=== PATIENT | female | born 1985 | race African-American/Black ===

== ENCOUNTER 2016-10-12 11:47 | Observation (INO) | payer BC ==
[~2016-10-12] VITALS: Ht 175.3 cm; Wt 78.0 kg
[2016-10-12] VITALS (16 sets, daily range): BP systolic 68–107; BP diastolic 34–80
--- NOTE | 2016-10-12 12:07 | PHYS DOC ---
Past Medical History Past Medical History: No Pertinent History Past Surgical History: No Surgical History Alcohol Use: Occasionally Drug Use: None Adult General Chief Complaint Chief Complaint: VAGINAL BLEEDING HPI HPI Patient is a 31 year old Bangladeshi Bangladeshi female who presents with. 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 She denies any recent intercourse or penetration. She states she was checked recently for sexually transmitted infections and is negative. She denies any past surgical history. She had to call 911 and 911 reported she had a syncopal episode with them for about 1 minute. She is currently alert and oriented 4, mildly diaphoretic but denying any pain. Review of Systems Review of Systems Constitutional: Denies fever or chills [] Eyes: Denies change in visual acuity, redness, or eye pain [] HENT: Denies nasal congestion or sore throat [] Respiratory: Denies cough or shortness of breath [] Cardiovascular: No additional information not addressed in HPI [] GI: Denies abdominal pain, nausea, vomiting, bloody stools or diarrhea [] : Denies dysuria or hematuria [] Musculoskeletal: Denies back pain or joint pain [] Integument: Denies rash or skin lesions [] Neurologic: Denies headache, focal weakness or sensory changes [] Endocrine: Denies polyuria or polydipsia [] Current Medications Current Medications Current Medications Medications (Trade) Dose Ordered Sig/Coty Start Time Stop Time Status Last Admin Dose Admin Sodium Chloride 1,000 ml @ 1,000 mls/hr 1X ONCE 10/12/16 12:45 10/12/16 13:44 DC 10/12/16 12:54 1,000 MLS/HR Allergies Allergies Allergies Coded Allergies Type Severity Reaction Last Updated Verified No Known Drug Allergies 10/12/16 No Physical Exam Physical Exam Constitutional: Well developed, well nourished, no acute distress, non-toxic appearance. [] HENT: Normocephalic, atraumatic, bilateral external ears normal, oropharynx moist, no oral exudates, nose normal. [] Eyes: PERRLA, EOMI, conjunctiva normal, no discharge. [] Neck: Normal range of motion, no tenderness, supple, no stridor. [] Cardiovascular:Heart rate regular rhythm, no murmur [] Lungs & Thorax: Bilateral breath sounds clear to auscultation [] Abdomen/pelvic exam: Bowel sounds normal, soft, no tenderness, no masses, no pulsatile masses. Pelvic exam shows blood with large clots in the vault, cannot appreciate the os secondary to blood. Skin: Warm, dry, no erythema, no rash. [] Back: No tenderness, no CVA tenderness. [] Extremities: No tenderness, no cyanosis, no clubbing, ROM intact, no edema. [] Neurologic: Alert and oriented X 3, normal motor function, normal sensory function, no focal deficits noted. [] Psychologic: Affect normal, judgement normal, mood normal. [] Current Patient Data Vital Signs Vital Signs Date Time Temp Pulse Resp B/P (MAP) Pulse Ox O2 Delivery O2 Flow Rate FiO2 10/12/16 13:41 98.0 92 20 73/50 98.0 10/12/16 12:43 100 Room Air Lab Values Laboratory Tests Test 10/12/16 04:20 10/12/16 12:20 Maternal Serum HCG Beta Subunit 762 mIU/mL (0-5) H White Blood Count 5.6 x10^3/uL (4.0-11.0) Red Blood Count 3.65 x10^6/uL (3.50-5.40) Hemoglobin 10.2 g/dL (12.0-15.5) L Hematocrit 31.7 % (36.0-47.0) L Mean Corpuscular Volume 87 fL (79-100) Mean Corpuscular Hemoglobin 28 pg (25-35) Mean Corpuscular Hemoglobin Concent 32 g/dL (31-37) Red Cell Distribution Width 14.5 % (11.5-14.5) Platelet Count 192 x10^3/uL (140-400) Neutrophils (%) (Auto) 63 % (31-73) Lymphocytes (%) (Auto) 29 % (24-48) Monocytes (%) (Auto) 7 % (0-9) Eosinophils (%) (Auto) 1 % (0-3) Basophils (%) (Auto) 1 % (0-3) Neutrophils # (Auto) 3.5 x10^3uL (1.8-7.7) Lymphocytes # (Auto) 1.6 x10^3/uL (1.0-4.8) Monocytes # (Auto) 0.4 x10^3/uL (0.0-1.1) Eosinophils # (Auto) 0.0 x10^3/uL (0.0-0.7) Basophils # (Auto) 0.0 x10^3/uL (0.0-0.2) Prothrombin Time 14.9 SEC (11.7-14.0) H Prothrombin Time INR 1.2 (0.8-1.1) H PTT 26 SEC (24-38) Sodium Level 143 mmol/L (136-145) Potassium Level 3.4 mmol/L (3.5-5.1) L Chloride Level 108 mmol/L (98-107) H Carbon Dioxide Level 24 mmol/L (21-32) Anion Gap 11 (6-14) Blood Urea Nitrogen 10 mg/dL (7-20) Creatinine 1.1 mg/dL (0.6-1.0) H Estimated GFR (Cockcroft-Gault) 58.3 BUN/Creatinine Ratio 9 (6-20) Glucose Level 141 mg/dL (70-99) H Calcium Level 7.9 mg/dL (8.5-10.1) L Total Bilirubin 0.2 mg/dL (0.2-1.0) Aspartate Amino Transferase (AST) 15 U/L (15-37) Alanine Aminotransferase (ALT) 8 U/L (14-59) L Alkaline Phosphatase 65 U/L (46-116) Total Protein 6.3 g/dL (6.4-8.2) L Albumin 3.1 g/dL (3.4-5.0) L Albumin/Globulin Ratio 1.0 (1.0-1.7) Laboratory Tests 10/12/16 12:20 Laboratory Tests 10/12/16 12:20 Microbiology 10/12/16 Wet Prep - Final, Complete Microbiology 10/12/16 Wet Prep - Final, Complete EKG EKG [] Radiology/Procedures Radiology/Procedures [] Impressions: Vaginal bleeding Course & Med Decision Making Course & Med Decision Making Pertinent Labs and Imaging studies reviewed. (See chart for details) 1245: I spoke with Dr. Vega who wants patient admitted to his service. He was updated him on the beta-hCG and ultrasound pending. 1345: Spoke with Dr. Vega informed him of the beta Quant and her blood pressure systolic in the 60s. Patient's getting another 2 units of blood on the rapid infuser and additional fluids. At this point it seems she was and likely miscarried and has retained products and that's why she's bleeding. Patient is being admitted to Dr. Vega. Dr. Burr at bedside 1400. She will be going to the OR. Critical care time: 55 minutes critical care time was used on this patient excluding procedures. Dragon Disclaimer Dragon Disclaimer This electronic medical record was generated, in whole or in part, using a voice recognition dictation system. Departure Departure Impression: Primary Impression: Vaginal bleeding Disposition: ADMITTED INPATIENT Admitting Physician: Other Condition: GUARDED JACIEL LOCKWOOD MD Oct 12, 2016 12:07
[2016-10-12] MEDS ORDERED: IV NORMAL SALINE 500ML BAG 500 ML IV ONE (12:20)
[2016-10-12 12:32] LABS: BASO % 1 % (0-3); EOS % 1 % (0-3); HEMATOCRIT 31.7 % (36.0-47.0); HEMOGLOBIN 10.2 g/dL (12.0-15.5); LYMPH # 1.6 x10^3/uL (1.0-4.8); LYMPH % 29 % (24-48); MEAN CORPUSCULAR HEMOGLOBIN 28 pg (25-35); MEAN CORPUSCULAR HGB CONC 32 g/dL (31-37); MEAN CORPUSCULAR VOLUME 87 fL (79-100); MONO % 7 % (0-9); NEUT % 63 % (31-73); PLATELET COUNT 192 x10^3/uL (140-400); RED BLOOD COUNT 3.65 x10^6/uL (3.50-5.40); RED CELL DISTRIBUTION WIDTH 14.5 % (11.5-14.5); WHITE BLOOD COUNT 5.6 x10^3/uL (4.0-11.0)
[2016-10-12 12:42] LABS: INR 1.2 (0.8-1.1); PROTHROMBIN TIME PATIENT 14.9 SEC (11.7-14.0)
[2016-10-12 12:44] LABS: CALCIUM 7.9 mg/dL (8.5-10.1); CREATININE 1.1 mg/dL (0.6-1.0); GFR 58.3; POTASSIUM 3.4 mmol/L (3.5-5.1)
[2016-10-12] MEDS ORDERED: IV NORMAL SALINE 1000ML BAG 1,000 ML IV ONE (12:45)
[2016-10-12 12:50] LABS: ALBUMIN 3.1 g/dL (3.4-5.0); TOTAL BILIRUBIN 0.2 mg/dL (0.2-1.0); TOTAL PROTEIN 6.3 g/dL (6.4-8.2)
--- NOTE | 2016-10-12 13:54 | RAD ---
INDICATION: Vaginal bleeding COMPARISON: None. TECHNIQUE: Grayscale and color ultrasound images uterus and adnexa. Transabdominal and transvaginal images obtained. FINDINGS: Uterus: 11.1 x 6.5 x 5.7 cm. Endometrial Stripe: 5 mm. Focal thickening near the cervix measuring up to approximately 14 mm. Right Ovary: 2.4 x 3.1 x 1.9 cm. Flow Identified. Left Ovary: Obscured by bowel gas. IMPRESSION: 1. There is some debris or focal endometrial thickening near the cervical region with the endometrial stripe smaller in thickness more superiorly. Could be secondary to some blood/debris within or focal thickening. Follow-up examination could be obtained to ensure that there is appropriate thinning of this portion of the endometrium. 2. Nonvisualization of the left ovary with vascular flow seen to the right ovary.
[2016-10-12] MEDS ORDERED: LIDOCAINE 2% PF Vial for OR 5 ML VIAL. ONE ×2 (14:08→14:09)
[2016-10-12] MEDS ORDERED: fentaNYL PF VIAL 100 MCG/2 ML VIAL ONE (14:08)
[2016-10-12] MEDS ORDERED: MIDAZOLAM HCL/PF 2 MG/2 ML VIAL. ONE (14:08)
[2016-10-12] MEDS ORDERED: SUCCINYLCHOLINE 200 MG/10 ML VIAL. ONE (14:08)
[2016-10-12] MEDS ORDERED: PROPOFOL 20 ML IV ONE (14:08)
[2016-10-12] MEDS ORDERED: METOCLOPRAMIDE HCL 10 MG/2 ML VIAL. ONE (14:09)
[2016-10-12] MEDS ORDERED: FAMOTIDINE 20 MG/2 ML VIAL ONE (14:09)
[2016-10-12] MEDS ORDERED: oxyCODONE/APAP 5/325 1 TAB TABLET PO PRN ×2 (14:30)
[2016-10-12] MEDS ORDERED: DEXTROSE 50% 25 GM / 50ML DISP.SYRIN. IV PRN (14:30)
[2016-10-12] MEDS ORDERED: ONDANSETRON PF 4 MG/2 ML VIAL. IV PRN (14:30)
[2016-10-12] MEDS ORDERED: MAG HYDROX/ALUMINUM HYD/SIMETH 30 ML ORAL.SUSP PO PRN (14:30)
[2016-10-12] MEDS ORDERED: oxyCODONE IR 5 MG TABLET PO PRN (14:30)
[2016-10-12] MEDS ORDERED: diphenhydrAMINE HCL 25 MG CAPSULE PO PRN (14:30)
[2016-10-12] MEDS ORDERED: KETOROLAC TROMETHAMINE 30 MG/ML INJ. IV PRN (14:30)
[2016-10-12] MEDS ORDERED: 0.9 % SODIUM CHLORIDE 10 ML DISP.SYRIN. IV PRN (14:30)
[2016-10-12] MEDS ORDERED: IV RINGERS,LACTATED 1000ML 1,000 ML IV ONE (14:30)
[2016-10-12] MEDS ORDERED: METOCLOPRAMIDE HCL 10 MG/2 ML VIAL. IV PRN (14:30)
[2016-10-12] MEDS ORDERED: MORPHINE SULFATE 2 MG/ML DISP.SYRIN. IV PRN (14:30)
--- NOTE | 2016-10-12 14:50 | PDOC ---
BRIEF OPERATIVE NOTE Date: Oct 12, 2016 Pre-Op Diagnosis Incomplete AB Post-Op Diagnosis Same Procedure Performed Suction D and C Surgeon Joe Extraction Operator None Anesthesia Type: General Blood Loss 50cc Specimens Obtained POC Complications None DONELL JIMENEZ MD Oct 12, 2016 14:50
[2016-10-12] MEDS ORDERED: SEVOFLURANE 16 TO 30 MINUTES. IH ONE (14:56)
[2016-10-12] MEDS ORDERED: OXYTOCIN 10 UNIT/ML VIAL. ONE (14:56)
[2016-10-12] MEDS ORDERED: PHENYLEPHRINE in 0.9% NACL PF 1 MG/10 ML DISP.SYRIN. IV ONE (14:56)
[2016-10-12 18:13] LABS: HEMATOCRIT 28.1 % (36.0-47.0); HEMOGLOBIN 9.3 g/dL (12.0-15.5)
--- NOTE | 2016-10-12 20:46 | OP ---
DATE OF SURGERY: 10/12/2016 PREOPERATIVE DIAGNOSIS: Incomplete , anemia, syncopal episode. POSTOPERATIVE DIAGNOSIS: Incomplete , anemia, syncopal episode. PROCEDURE: Suction dilatation and curretage. SURGEON: Chance Diaz M.D. GROUNDHAND: None. ANESTHESIA: General. ESTIMATED BLOOD LOSS: Less than 100 mL. FLUIDS: Crystalloid. SPECIMENS: Products of conception. COMPLICATIONS: None. CONDITION: Stable. DESCRIPTION OF PROCEDURE: After risks, benefits, indications, alternatives discussed in detail with the patient and the patient's family, the patient brought to the OR theater, placed in dorsal lithotomy position in Gonzalez stirrups. After adequate general anesthesia, the patient prepped and draped in usual sterile manner. Posterior weighted speculum was placed in the vaginal vault. Cervix was grasped with single tooth tenaculum. Cervical os is already dilated up using ring forceps. Ring forceps was used to explore the uterine cavity. Products of conception was removed from the uterine cavity and handed off the operative field. A number 10 curved suction cannula was placed through the uterine cavity. Minimum products of conception were seen going through clear tubing. Sharp curettage was then performed in all quadrants until uterine cry was heard. Suction cannula was once again passed, no further products of conception were seen and tubing was cleared with normal saline. Vaginal vault was wiped free of any tissue, membranes or blood. Single tooth tenaculum was removed. Puncture sites were hemostatic, procedure was terminated. Pitocin was given postoperatively. Sponge, needle and instrument counts were correct x 2 per nursing staff. The patient tolerated the procedure well with postop anesthesia recovery in stable condition. CHANCE DIAZ MD DR: FANNY/shanda JOB#: [id number] / [id number]
[2016-10-12] MEDS: DOXYCYCLINE HYCLATE 100 MG TABLET PO SCH (21:08)
[2016-10-12] MEDS: METHYLERGONOVINE MALEATE 0.2 MG TABLET PO SCH (21:08)
[2016-10-12] MEDS ORDERED: ZOLPIDEM 5 MG TABLET. PO PRN (23:00)
[2016-10-13 02:55] VITALS: BP 113/72
[2016-10-13] MEDS: DOXYCYCLINE HYCLATE 100 MG TABLET PO SCH ×2 (07:57→14:03)
[2016-10-13] MEDS: METHYLERGONOVINE MALEATE 0.2 MG TABLET PO SCH (07:57)
[2016-10-13 10:35] VITALS: BP 100/59
--- NOTE | 2016-10-13 14:56 | PDOC3 ---
OB DISCHARGE SUMMARY DATE OF ADMISSION: 10/12/16 DATE OF DISCHARGE: 10/13/16 REASON FOR ADMISSION: Vaginal bleeding, Spontaneous aboration PROCEDURES: Ultrasound INTRAPARTUM PROCEDURES: Curettage OPERATIONS: Hemorrhage DISCHARGE DIAGNOSIS: Others DISCHARGE INFORMATION: Activity, Diet HOSPITAL COURSE Unremarkable CONDITION AT DISCHARGE Stable DONELL JIMENEZ MD Oct 13, 2016 14:56
--- NOTE | 2016-10-13 14:59 | PDOC1 ---
OB - History Hx of Present Care: None Ultrasounds: Abnormal US findings (No IUP pos hcg 300=) Obstetrical Complications: Other (SAB) Medical Complications: None Past Family/Social History * Past Medical, Surgical, Family and Obstetric Histories reviewed from chart. Blood Type: O+ Rubella: Unknown RPR/VDRL: Unknown GBS Status: Unknown HBsAG: Unknown OB - Chief Complaint & HPI Date of Admission: Date of Admission: Oct 12, 2016 at 13:30 Chief Complaint/History : 3 Para: 3 EGA: Unknown Reason for admission: observation, vaginal bleeding Admission Nurse Assessment Rev: Yes Problems: OB - Admission Exam Physical Exam Vitals: VS - Last 72 Hours, by Label Date Time Temp Pulse Resp B/P (MAP) Pulse Ox O2 Delivery O2 Flow Rate FiO2 10/13/16 10:35 98.0 98 18 100/59 (73) 98.0 10/13/16 02:55 98.7 111 16 113/72 (86) 98.7 10/12/16 22:25 98.1 99 18 102/58 (73) 98.1 10/12/16 19:00 98.0 106 18 90/57 (68) 99 Room Air 98.0 10/12/16 18:00 116 87/62 (70) 10/12/16 17:30 98.0 111 18 93/64 (74) 100 Room Air 98.0 10/12/16 17:00 16 16 107/59 (75) 100 Room Air 10/12/16 16:45 97.4 92 16 106/64 (78) 99 Room Air 97.4 10/12/16 16:30 99 16 103/80 (88) 100 Room Air 10/12/16 16:15 97.6 97 14 98/56 (70) 97 Room Air 97.6 10/12/16 15:45 78 20 91/49 78 Room Air 10/12/16 15:27 78 20 92/47 100 Room Air 10/12/16 15:12 78 20 100/49 100 Room Air 10/12/16 14:57 74 20 106/53 74 Simple Mask 10 10/12/16 14:22 97.4 74 12 80/46 97.4 10/12/16 14:22 97.4 74 12 80/46 100 2.0 97.4 10/12/16 13:51 81 81/50 7/21/17 13:51 81 81/50 (60) 100 Nasal Cannula 2.0 10/12/16 13:49 80 78/49 10/12/16 13:49 80 78/49 (59) 100 Nasal Cannula 2.0 10/12/16 13:46 86 71/41 (51) 100 Nasal Cannula 2.0 10/12/16 13:46 86 71/41 10/12/16 13:44 83 68/34 (45) 100 Nasal Cannula 2.0 10/12/16 13:44 83 68/34 10/12/16 13:41 85 73/50 (58) 100 Nasal Cannula 2.0 10/12/16 13:41 98.0 92 20 73/50 98.0 10/12/16 13:39 92 20 74/44 10/12/16 13:39 87 74/44 (54) 100 Nasal Cannula 2.0 10/12/16 13:38 94 74/43 (53) 100 Nasal Cannula 2.0 10/12/16 13:36 93 74/46 (55) 100 Nasal Cannula 2.0 10/12/16 13:33 97.8 94 20 90/51 97.8 10/12/16 13:31 95 90/51 (64) 100 Nasal Cannula 2.0 10/12/16 13:21 103 95/64 (74) 100 Nasal Cannula 2.0 10/12/16 13:16 97 91/55 (67) 100 Nasal Cannula 2.0 10/12/16 13:11 89 93/62 (72) 100 Nasal Cannula 2.0 10/12/16 13:06 92 86/52 (63) 100 Nasal Cannula 2.0 10/12/16 13:01 90 88/54 (65) 99 Nasal Cannula 2.0 10/12/16 12:56 88 92/53 (66) 99 Room Air 2.0 10/12/16 12:52 82 94/53 (67) 10/12/16 12:50 78 91/57 (68) 10/12/16 12:43 91 15 60/41 (47) 100 Room Air 10/12/16 12:27 91 18 93/56 (68) 99 Room Air 10/12/16 12:22 107 14 86/53 (64) 99 Room Air 10/12/16 11:50 98.0 106 18 98/58 (71) 100 Room Air 98.0 HEENT: Normal, Nasal Mucosa Normal, Oropharynx Normal, Moist Membranes, Fontanelles Normal Heart: Other (Tachy) Lungs: Clear Abdomen: Non tender, Soft Extremities: Normal Pulses, No tenderness or swelling Reflexes: Normal Assessment/Plan Assessment/Plan Early miscarriage Suction D and C Problems: DONELL JIMENEZ MD Oct 13, 2016 14:59
[2016-10-13] MEDS ORDERED: DOXY100C14 PO (15:04)
[2016-10-13] MEDS ORDERED: HYDR-971 PO (15:04)
[2016-10-13] MEDS ORDERED: FERR-26 PO (15:04)
[2016-10-13] MEDS ORDERED: NAPR500T3 PO (15:04)
[2016-10-13] MEDS ORDERED: METH0.2T36 PO (15:04)
[2016-10-13 15:46] VITALS: BP 98/64
--- NOTE | 2016-10-17 12:18 | PATHOLOGY ---
PATHOLOGY REPORT * * * * * * * * FINAL DIAGNOSIS: Uterine contents, suction D and C: - Products of conception, comprised of immature chorionic villi showing focal necrosis, hydropic degenerative changes, and intervillous hemorrhage, and segments of decidual tissue showing focal hemorrhage, necrosis, and acute inflammation. (JPM:vimal; 10/16/2016) REPORT ELECTRONICALLY SIGNED BY: Merritt Garcia M.D. DATE/TIME: 10/16/2016 13:50 * * * * * * * * GROSS PATHOLOGY: The specimen is received in formalin, designated "Todd Wolfe, products of conception" and consists of 14 grams of dark reddish purple blood clot and luque lamra spongy tissue measuring 5.5 x 53.3 x 1.4 cm. A large portion of the specimen is received adherent to a segment of Telfa. This is sectioned to reveal a dark purple, hemorrhagic cut surface. The remaining tissue is friable, luque lamar spongy tissue. There is no grossly recognizable or embryonic tissue identified. Sales Consultant Residential Manager sections are submitted in cassettes [id number]. (JPM; 10/15/16) INITIAL CPT CODE(S): A; 94915 Professional services performed [place] [facility] [place] [address] Technical services performed by [facility] at [address] [place] [address], [facility] [address] [address]. SPECIMEN(S) RECEIVED: A.Products of conception CLINICAL HISTORY: Vaginal bleeding, missed PATIENT: TODD WOLFE /AGE: 1102/07/1985 (Age: 31) PATIENT #: [id number] ALT CASE #: SPECIMEN COLLECTION DATE: 10/12/2016 SPECIMEN RECEIVED DATE: 10/15/2016 [facility] - [address] [place] [address] - PHONE: [phone] * * * END OF REPORT * * *
== END 2016-10-13 16:37 | disposition home or self-care (01) ==
LOC: ER 11:47 → INTOOBSV 13:30 → 3 NORTH 13:30
PROVIDERS: ADMIT Specialist; ATTEND Specialist
DX: O03.4 Incomplete spontaneous abortion without complication (principal); D64.9 Anemia, unspecified
CPT/HCPCS: 36415; 36430; 59812; 76830; 76856; 80053; 84702; 85014; 85018; 85027; 85610; 85730; 86850; 86900; 86901; 86920; 87491; 87591; 88305; 99291; C1769; G0378; J0330; J2001; J2250; J2370; J2590; J2704; J3010; J7030; J7040; P9016; Q0111; S0028; 96360; 96361; G0379; J2765; J7120